=== PATIENT | male | born 1940 | race Caucasian/White ===

== ENCOUNTER 2024-09-05 07:43 | Inpatient (IN) | payer MEDICARE, SELFPAY ==
[2024-08-06 14:01] VITALS: BMI 31.8
[2024-08-06 14:15] LABS: Hematocrit 40.3 % (39.0-52.0); Hemoglobin 13.7 g/dL (13.0-18.0); Mean Corpuscular Hgb 31.5 pg (27.0-31.0); Mean Corpuscular Volume 92.6 fL (80.0-94.0); Mean Platelet Volume 11.3 fL (7.4-10.4); Platelet Count 204 10^3/uL (130-400); Red Blood Cell Count 4.35 10^6/uL (4.70-6.10); Red Cell Dist. Width 13.4 % (11.5-14.5); White Blood Cell Count 5.1 10^3/uL (4.8-10.8)
[2024-08-06 14:36] LABS: ALT (SGPT) 19 U/L (0-50); AST (SGOT) 23 U/L (17-59); Alkaline Phosphatase 85 U/L (38-126); Blood Urea Nitrogen 26 mg/dl (9-20); Calcium 9.7 mg/dl (8.4-10.2); Carbon Dioxide 25 mmol/L (22-30); Chloride 102 mmol/L (98-107); Estimated Creatinine Clearance 50 ml/min; Glucose 81 mg/dl (70-99); Potassium 4.3 mmol/L (3.5-5.1); Sodium 139 mmol/L (135-145); Total Bilirubin 0.9 mg/dl (0.2-1.3); Total Protein 6.7 g/dl (6.3-8.2); eGFR 59.26
[2024-08-07 11:43] LABS: Glycohemoglobin (HgbA1c) 5.3 % (4.0-5.6)
[2024-08-31 14:08] VITALS: BMI 31.8
[2024-09-05] VITALS (15 sets, daily range): BP systolic 71–139; BP diastolic 51–77; PULSE 59; O2SAT 98
[2024-09-05] MEDS: TYLENOL 650 MG PO ×5 (08:28→23:15)
[2024-09-05] MEDS: CELEBREX 200 MG PO (08:28)
--- NOTE | 2024-09-05 11:45 | W.DS.TRANS ---
DC Summary - Cfo
-
Discharge Instructions:
Sleep Apnea Risk Intermediate
Discharge Diagnosis/Procedures L TKA Dr. Cesar 09/05/24
Diet As tolerated
Activity With Walker
Driving Restrictions No driving
Bathing Restrictions OK to Shower
Other Services PT
Instructions:
Stand-Alone Forms: Total Hip/Knee Replacement D/C
Changes to Home Medications: Yes
Discharge Medications:
DC Medications w/original date entered in [facility]
allopurinol 300 mg tablet 300 mg PO DAILY 08/31/24
aspirin 81 mg capsule 81 mg PO DAILY 08/31/24
atorvastatin 20 mg tablet (Lipitor) 20 mg PO DAILY 08/31/24
cholecalciferol (vitamin D3) 25 mcg (1,000 unit) chewable tablet (Vitamin D3) 25 mcg PO DAILY 08/31/24
dorzolamide 2 % eye drops 1 drp ophthalmic (eye) BID 08/31/24
folic acid-vit B6-vit B12 2.5 mg-25 mg-2 mg tablet (Folbic) 1 tab PO DAILY 08/31/24
lactobacillus combination no.4 3 billion cell capsule (Probiotic) 3,000 mmu cells PO DAILY 08/31/24
latanoprost 0.005 % eye drops 1 drp ophthalmic (eye) DAILY 08/31/24
losartan 50 mg tablet 50 mg PO DAILY 08/31/24
magnesium 200 mg tablet 200 mg PO DAILY 08/31/24
multivitamin 1 tab PO DAILY 08/31/24
omega-3 fatty acids 1,000 mg PO DAILY 08/31/24
acetaminophen 325 mg tablet (Tylenol) 650 mg (2 x 325 mg) PO QID #1 tab 09/05/24
aspirin 325 mg tablet 325 mg PO DAILY blood clot prevention #1 tab 09/05/24
celecoxib 100 mg capsule 100 mg PO BID Anti-inflammatory #14 caps 09/05/24
dexamethasone 4 mg tablet 4 mg PO BID inflammation #6 tabs 09/05/24
docusate sodium 100 mg capsule (Colace) 100 mg PO BID stool softner #1 cap 09/05/24
famotidine 20 mg tablet 20 mg PO HS GI prophylaxis #30 tabs 09/05/24
magnesium hydroxide 400 mg/5 mL oral suspension (Milk of Magnesia) 30 ml PO HS PRN Constipation #1 mL 09/05/24
ondansetron 4 mg disintegrating tablet 4 mg PO Q6H PRN n/v #20 tabs 09/05/24
oxycodone 5 mg tablet 5 mg PO Q6H PRN 1 tab moderate pain, 2 tabs severe pain #30 tabs 09/05/24
sennosides 8.6 mg tablet (Senokot) 17.2 mg (2 x 8.6 mg) PO BID laxative #2 tabs 09/05/24
Home Medication Changes
0 mg capsule 100 mg PO BID Anti-inflammatory #14 caps 09/05/24
dexamethasone 4 mg tablet 4 mg PO BID inflammation #6 tabs 09/05/24
docusate sodium 100 mg capsule (Colace) 100 mg PO BID stool softner #1 cap 09/05/24
famotidine 20 mg tablet 20 mg PO HS GI prophylaxis #30 tabs 09/05/24
magnesium hydroxide 400 mg/5 mL oral suspension (Milk of Magnesia) 30 ml PO HS PRN Constipation #1 mL 09/05/24
ondansetron 4 mg disintegrating tablet 4 mg PO Q6H PRN n/v #20 tabs 09/05/24
oxycodone 5 mg tablet 5 mg PO Q6H PRN 1 tab moderate pain, 2 tabs severe pain #30 tabs 09/05/24
sennosides 8.6 mg tablet (Senokot) 17.2 mg (2 x 8.6 mg) PO BID laxative #2 tabs 09/05/24
Pending Results: No
[2024-09-05] MEDS: ROXICODONE 5 MG PO (12:25)
--- NOTE | 2024-09-05 15:21 | PTCARENOTE ---
Addendum entered by Pauline June RN 09/05/24 19:21:
Upon arrival patient placed on telemetry as ordered. Patient had a prolonged QT, also seen on pre-hospital EKG. Rosa Ling PAC made aware. Zofran discontinued.
Original Note:
Received patient from PACU via bed around 1505 in stable condition. patient oriented to room. Left knee dressing intact. + movement +sensation to LLE. Patient denies pain at this time. DTV. Call clark in reach.
[2024-09-05] MEDS: NORMOSOL-R/PLASMALYTE-A 1000 IV (16:22)
[2024-09-05] MEDS: LIPITOR 20 MG PO (16:22)
[2024-09-05] MEDS: ASPIRIN 325 MG PO (18:05)
[2024-09-05] MEDS: ANCEF 5 IV (18:05)
[2024-09-05] MEDS: ULTRAM 25 MG PO ×2 (18:05→21:31)
[2024-09-05] MEDS: TRUSOPT 2% OPHTHALMIC SOLUTION 1 DROP OPHTH (19:58)
[2024-09-05] MEDS: COLACE 100 MG PO (19:59)
[2024-09-05] MEDS: SENOKOT 17.2 MG PO (19:59)
[2024-09-05] MEDS: DECADRON 4 MG IV (20:00)
[2024-09-05] MEDS: BACTROBAN 2% OINTMENT 1 APPLIC NASAL (20:00)
[2024-09-05] MEDS: XALATAN OPHTHALMIC SOLUTION 1 DROP BOTH EYES (21:30)
[2024-09-05] MEDS: NEURONTIN 300 MG PO (21:31)
[2024-09-06] MEDS: ANCEF 5 IV (02:07)
[2024-09-06 03:21] VITALS: BP 105/65
[2024-09-06] MEDS: TYLENOL 650 MG PO ×2 (04:11→08:12)
[2024-09-06 07:15] VITALS: BP 115/65
[2024-09-06] MEDS: ULTRAM 25 MG PO (08:11)
[2024-09-06] MEDS: VISBIOME 1 CAP PO (08:12)
[2024-09-06] MEDS: MAG-TAB SR 84 MG PO (08:12)
[2024-09-06] MEDS: ZYLOPRIM 300 MG PO (08:12)
[2024-09-06] MEDS: ASPIRIN 325 MG PO (08:12)
[2024-09-06] MEDS: COLACE 100 MG PO (08:12)
[2024-09-06] MEDS: LIPITOR 20 MG PO (08:12)
[2024-09-06] MEDS: SENOKOT 17.2 MG PO (08:12)
[2024-09-06] MEDS: BACTROBAN 2% OINTMENT 1 APPLIC NASAL (08:15)
[2024-09-06] MEDS: TRUSOPT 2% OPHTHALMIC SOLUTION 1 DROP OPHTH (08:16)
[2024-09-06] MEDS: DECADRON 4 MG IV (08:16)
[2024-09-06] MEDS: TORADOL 10 MG IV (08:16)
[2024-09-06 09:30] VITALS: BP 115/64; PULSE 71; O2SAT 98
--- NOTE | 2024-09-06 10:11 | W.PN.ORTHO ---
Today's Communication / Plan
-
d/c
Assessment
.
Distal Motor Intact: Yes
Dressing:
Clean, dry and intact.
Plan
.
Surgery / Date: Godwin Cesar 09/05/24
DVT Prophylaxis: Aspirin
Activity:
Out of bed.
PT/OT
Discharge Plan: Home w/ Outpatient PT
Subjective
.
.:
Patient resting comfortably.
Vital Signs and Labs
.
Vital Signs and Labs:
Lab Results
08/06/24 13:36
08/06/24 13:36
Temp Pulse Resp BP Pulse Ox
97.8 F 62 16 115/65 98
09/06/24 07:15 09/06/24 08:15 09/06/24 07:15 09/06/24 08:15 09/06/24 07:15
Non-invasive Hgb result: 12.4
Physical Exam
-
HEENT: No pallor, cyanosis, or jaundice. Throat clear.
NECK: Supple. No JVD.
RESPIRATORY: Lungs clear to auscultation.
CVS: S1, S2 normal. RRR.� No murmur, rub or gallop.
ABDOMEN: Soft, non-tender. No distension. BS+/normal.
EXTREMITIES: strength equal, no calf pain with palpation
[employer]: AOx3. No focal deficits. associate programmer grossly intact
[2024-09-06 10:47] VITALS: BP 127/71; PULSE 69
--- NOTE | 2024-09-06 11:06 | CM ---
Addendum entered by Merly Beasley 09/06/24 11:10:
IMM explained & signed. In chart
Original Note:
Patient seen at bedside.
IA completed. case management consult completd.
Lives in a multi level home alone, 3 steps to enter, flight to second floor
PLOF: Independent, used no AD
DME: kar Dailey
Has outpatient PT scheduled today at [facility] in [place]
Denies insecurities
PCP: Elva Leonard
Pharmacy: [facility]
PLAN: home, outpatient therapy
friend Stephanie to transport
[2024-09-06 11:30] VITALS: BP 135/74
== END 2024-09-06 11:52 | disposition home or self-care (01) | DRG 470 ==
LOC: 2 SOUTH 07:43
PROVIDERS: ADMITTING PHYSICIAN Orthopaedic Surgery; FAMILY PHYSICIAN Internal Medicine
PROC: 0SRD0J9 Replacement of Left Knee Joint with Synthetic Substitute, Cemented, Open Approach (ICD-10-PCS; 2024-09-05)
DX: M17.12 Unilateral primary osteoarthritis, left knee (principal)
CPT/HCPCS: 36415; 73560; 80053; 83036; 85027; 87070; 93005; 97116; 97161; 97166; C1713; C1776

== ENCOUNTER 2024-10-07 17:26 | Emergency (ER) | payer MEDICARE, SELFPAY ==
[2024-10-07 17:37] VITALS: BP 137/82
[2024-10-07 17:52] LABS: % Basophils 0.9 % (0-2); % Eosinophils 2.7 % (0-6); % Immature Granulocytes 0.3 % (0-0.5); % Lymphocytes 22.9 % (20.5-51.1); % Monocytes 8.2 % (1.7-9.3); Absolute Basophils 0.1 10^3/uL (0-0.2); Absolute Eosinophils 0.2 10^3/uL (0-0.7); Absolute Lymphocytes 1.6 10^3/uL (1.2-3.4); Absolute Monocytes 0.6 10^3/uL (0.1-0.6); Absolute Neutrophils 4.5 10^3/uL (1.4-6.5); Hemoglobin 12.4 g/dL (13.0-18.0); Mean Corp Hgb Conc. 32.6 g/dL (33.0-37.0); Mean Corpuscular Hgb 31.4 pg (27.0-31.0); Mean Corpuscular Volume 96.2 fL (80.0-94.0); Mean Platelet Volume 9.7 fL (7.4-10.4); Nucleated Red Blood Cells % 0 % (-); Platelet Count 329 10^3/uL (130-400); Red Blood Cell Count 3.95 10^6/uL (4.70-6.10); Red Cell Dist. Width 13.3 % (11.5-14.5)
[2024-10-07 18:13] LABS: ALT (SGPT) 18 U/L (0-50); AST (SGOT) 23 U/L (17-59); Albumin 3.9 g/dl (3.5-5.0); Alkaline Phosphatase 110 U/L (38-126); Blood Urea Nitrogen 22 mg/dl (9-20); Calcium 10.1 mg/dl (8.4-10.2); Carbon Dioxide 30 mmol/L (22-30); Chloride 103 mmol/L (98-107); Glucose 99 mg/dl (70-99); Potassium 5.2 mmol/L (3.5-5.1); Sodium 140 mmol/L (135-145); Total Bilirubin 0.5 mg/dl (0.2-1.3); Total Protein 6.9 g/dl (6.3-8.2); eGFR 53.84
[2024-10-07 23:15] VITALS: BP 142/76
[2024-10-07 23:36] VITALS: BP 129/78
--- NOTE | 2024-10-07 23:54 | ED.GENMED ---
History of Present Illness
General
Chief Complaint: Heart Rate Problem
Source: patient
Exam Limitations: none
Time Seen by Provider: 10/07/24 23:34
Nursing documentation reviewed up to this point in time: agreed with
History of Present Illness
History of Present Illness:
The patient is a pleasant 84-year-old man who reports that for the last few days his pulse feels elevated. Patient reports that 2 days ago, his heart rate seemed to be above 100. Patient reports that is very unusual for him. Patient denies fever,
nausea, vomiting and diarrhea. Patient denies shortness of breath and chest pain. Patient reports that years ago a friend had an elevated heart rate and was found to be anemic so he wants to make sure he is okay. Patient denies bloody or black
stool.
Past History
Past History
ED Past Medical History: Cancer, HTN and Hypercholesterolemia
ED Past Surgical History: Orthopedic
Social History
Tobacco: Non-smoker
Alcohol: Other
Drug: Other
Personal: Other
Living: with family
Employment: Retired
Family History
Family History: Other
Review of Systems
Review of Systems
Allergies reviewed?: Yes
All Other Systems: ROS reviewed and negative except as documented in HPI and ROS
Constitutional: Reports no symptoms
EENT: Reports no symptoms
Respiratory: Reports no symptoms
Cardiac: Reports palpitations
ABD/GI: Reports no symptoms
: Reports no symptoms
Musculoskeletal: Reports no symptoms
Skin: Reports no symptoms
Neurological: Reports no symptoms
Endocrine: Reports no symptoms
Hematologic/Lymphatic: Reports no symptoms
Psychiatric: Reports no symptoms
Phy Exam
Physical Exam
Physical Exam:
Physical Exam
General: no apparent distress, not acutely ill. Smiling, conversational and well-appearing
Neck: supple. no meningeal signs. normal psoterior pharynx
Heart: s1/s2 regular rate and rhythm, no murmur. equal radial pulses.
Lungs: no acute respiratory distress. clear bilaterally
Abdomen: normal bowel sounds. not tender. no CVAT
Neuro: alert and oriented. no focal neurological deficits
Skin: no rash
Psychiatric: well kept. interactive and cooperative
Extremities: no edema. no calf tenderness. negative homans. good distal pulses
Course
Orders/Labs/Results
Orders:
Orders
10/07/24 17:27
EKG [Electrocardiogram (*1)] Urgent
Reason for Study: Tachycardia
EKG- Treatment ONCE
10/07/24 17:44
Complete Blood Count/With Diff Urgent
Comprehensive Metabolic Panel Urgent
Abnormal Lab Results
10/07/24
17:44
RBC 3.95 L 10^6/uL
(4.70-6.10)
Hgb 12.4 L g/dL
(13.0-18.0)
Hct 38.0 L %
(39.0-52.0)
MCV 96.2 H fL
(80.0-94.0)
MCH 31.4 H pg
(27.0-31.0)
MCHC 32.6 L g/dL
(33.0-37.0)
Potassium 5.2 H mmol/L
(3.5-5.1)
BUN 22 H mg/dl
(9-20)
10/07/24 17:44
10/07/24 17:44
Vital Signs
Initial and Last Documented VS:
Initial Vital Signs
Temp Pulse Resp BP Pulse Ox
98.4 F 87 20 137/82 100
10/07/24 17:37 10/07/24 17:37 10/07/24 17:37 10/07/24 17:37 10/07/24 17:37
Last Documented Vital Signs
Temp Pulse Resp BP Pulse Ox
98.4 F 68 22 125/75 97
10/07/24 17:37 10/08/24 00:00 10/08/24 00:00 10/08/24 00:00 10/07/24 23:45
MDM/Problems Addressed
Differential Diagnosis Includes:
Atrial fibrillation, a flutter, sinus tachycardia
MDM/Problems Addressed:
Patient presents with complaints of elevated heart rate
*Pulse Oximetry
Patient hypoxic: no
*EKG
Interpreted by ED Provider?: Yes
Interpretation: abnormal
Comparison EKG: no changes
Rate: normal
Rhythm: sinus
Chelsea: left axis deviation
Interval: normal interval
QRS Pattern: normal QRS
Ischemia: no ischemia
*Ash Worker Interpretation
Rate: normal
Interpretation: normal
Rhythm: sinus
*Critical Care Note
Total Time (30-74mins, 75-104mins- exclusive of procedures): Not Applicable
Data Reviewed
Review of Other/Old Records Reveals: Operative Reports (Left knee replacement surgery September 2024, operative note reviewed by me)
Source: patient
Patient Management
Social determinants of health affecting care: Living situation and Strong social support
Escalation/DeEscalation of care consider admission/obs:
Patient looks well and comfortable. His heart rate has been in the 70s to 80s on the heart monitor. There is no sign of cardiac arrhythmia such as A-fib or a flutter. I have considered other causes of tachycardia such as PE, however, patient has
no chest pain or shortness of breath
ED Attending Note
-
Portions of this chart may have been created with voice recognition software.� Occasional wrong word or��sound alike� substitutions may have occurred due to the inherent limitations of voice recognition software.
Discharge Plan
Departure
Patient Disposition: Home (Routine Discharge)
Date of Disposition: 10/08/24
Time of Disposition: 00:04
Patient with high blood pressure during this ER visit?: Yes
Condition: Good
Covid-19: Not Applicable
Discharge Problem:
Anemia, mild
Instructions: Anemia overview, BLOOD PRESSURE
Prescriptions:
No Action
multivitamin Tablet
1 tab PO DAILY
losartan 50 mg Tablet
50 mg PO DAILY
latanoprost 0.005 % Drops
1 drp OPHTHALMIC (EYE) DAILY
atorvastatin [Lipitor] 20 mg Tablet
20 mg PO DAILY
allopurinol 300 mg Tablet
300 mg PO DAILY
dorzolamide 2 % Drops
1 drp OPHTHALMIC (EYE) BID
magnesium 200 mg Tablet
200 mg PO DAILY
omega-3 fatty acids Capsule
1,000 mg PO DAILY
Folbic 2.5-25-2 mg Tablet
1 tab PO DAILY
cholecalciferol (vitamin D3) [Vitamin D3] 25 mcg (1,000 unit) Tablet,Chewable
25 mcg PO DAILY
Probiotic 3 billion cell Capsule
3,000 mmu cells PO DAILY
aspirin 81 mg Capsule
81 mg PO DAILY
aspirin 325 mg tablet
325 mg PO DAILY Qty: 1 0RF
Rx Instructions:
Take with food
docusate sodium [Colace] 100 mg capsule
100 mg PO BID Qty: 1 0RF
celecoxib 100 mg capsule
100 mg PO BID Qty: 14 0RF
Rx Instructions:
take with food
sennosides [Senokot] 8.6 mg tablet
17.2 mg PO BID Qty: 2 0RF
acetaminophen [Tylenol] 325 mg tablet
650 mg PO QID Qty: 1 0RF
Rx Instructions:
SCHEDULED DOSING
famotidine 20 mg tablet
20 mg PO HS Qty: 30 0RF
Rx Instructions:
post-op
magnesium hydroxide [Milk of Magnesia] 400 mg/5 mL suspension
30 ml PO HS PRN (Reason: Constipation) Qty: 1 0RF
dexamethasone 4 mg tablet
4 mg PO BID Qty: 6 0RF
Rx Instructions:
take with food
post-op use only
ondansetron [ondansetron] 4 mg tablet,disintegrating
4 mg PO Q6H PRN (Reason: n/v) Qty: 20 0RF
Rx Instructions:
take 1/2h b/f pain med if recurrent nausea
allow to dissolve in mouth w/o water
oxycodone 5 mg tablet
5 mg PO Q6H PRN (Reason: 1 tab moderate pain, 2 tabs severe pain) Qty: 30 0RF
Rx Instructions:
Ongoing therapy
Referrals:
Elva Leonard MD [Family Provider] -
Activity Restrictions/Additional Instructions:
Your blood work showed mild anemia. Please follow-up with your primary care doctor in about 1 week to have your blood counts rechecked.
Interventions
Interventions:
*Risk Screen - Suicide Last Done: 10/07/24 17:37
*General Assessment Last Done: 10/07/24 17:37
*Neglect/Abuse Screening Last Done: 10/07/24 17:37
ED- Fall Risk Assessment Last Done: 10/08/24 00:23
*Nursing Disposition Last Done: 10/08/24 00:23
Discharge Date and Time
Discharge Date/Time: 10/08/24 00:23
Print Language: NIUEAN
[2024-10-08] VITALS: BP 125/75
== END 2024-10-08 00:23 | disposition home or self-care (01) ==
LOC: EMR 17:26
PROVIDERS: Emergency Medicine; EMERGENCY PHYSICIAN Emergency Medicine; FAMILY PHYSICIAN Internal Medicine
DX: D64.9 Anemia, unspecified (principal); I10 Essential (primary) hypertension
CPT/HCPCS: 99284; 80053; 85025; 93005